=== PATIENT | female | born 1940 | race Caucasian/White ===

== ENCOUNTER 2016-08-02 16:52 | Emergency (ER) | payer MEDICARE, BC ==
[2016-08-02] MEDS ORDERED: NITROGLYCERIN 0.4 MG TAB SL PRN (17:12)
[2016-08-02] MEDS ORDERED: SODIUM CHLORIDE 0.9% FLUSH 10 ML SOL IV PRN (17:12)
[2016-08-02] MEDS ORDERED: ALPRAZOLAM 0.25 MG TAB PO ONE (17:19)
[2016-08-02 17:21] VITALS: TEMP 98.2
[2016-08-02 17:23] LABS: BASOPHILS % (AUTO) 1 % (0-3); EOSINOPHILS % (AUTO) 3 % (0-9); HEMATOCRIT 44 % (35-47); MEAN CORPUSCULAR HGB CONC 36.4 gm/dl (32.0-36.0); MEAN CORPUSCULAR VOLUME 91 fL (81-99); MONOCYTES % (AUTO) 7.3 % (0-12); NEUTROPHILS % (AUTO) 66.2 % (37-80)
[2016-08-02] MEDS ORDERED: ALPRAZOLAM 0.25 MG TAB ONE (17:24)
[2016-08-02 17:44] LABS: CALCIUM 8.9 mg/dl (8.5-10.1); GLOM FILT RATE 63 mL/min (>60); POTASSIUM 4.3 mMol/L (3.5-5.1); SODIUM 139 mMol/L (136-145)
[2016-08-02 18:23] VITALS: BP 129/77; PULSE 86; RESP 25; O2SAT 96
== END 2016-08-02 19:05 | disposition home or self-care (01) | DRG 313 ==
LOC: ED 16:52
DX: R07.9 Chest pain, unspecified (principal); B37.0 Candidal stomatitis; F41.9 Anxiety disorder, unspecified
CPT/HCPCS: 36415; 71010; 80048; 82550; 84484; 85025; 85610; 85730; 93005; 99284

== ENCOUNTER 2017-03-07 07:35 | Day surgery (SDC) | payer MEDICARE, BC ==
[~2017-03-07 07:35] MED LIST: LIDOCAINE HCL 1% MPF SOL ONE; PROPOFOL 500 MG/50 ML EMU IV ONE
[2017-03-07 10:32] VITALS: TEMP 97.4
[2017-03-07 10:45] VITALS: RESP 20
[2017-03-07 11:01] VITALS: BP 119/66; PULSE 85; O2SAT 92
== END 2017-03-07 11:08 | disposition home or self-care (01) | DRG 392 ==
LOC: SURG 07:35
PROVIDERS: ATTEND Internal Medicine Gastroenterology
DX: R10.9 Unspecified abdominal pain (principal); R15.9 Full incontinence of feces; E11.9 Type 2 diabetes mellitus without complications; K59.00 Constipation, unspecified; R93.3 Abnormal findings on diagnostic imaging of other parts of digestive tract; R63.4 Abnormal weight loss; K62.3 Rectal prolapse; D12.2 Benign neoplasm of ascending colon; D12.3 Benign neoplasm of transverse colon; K63.5 Polyp of colon; K57.30 Diverticulosis of large intestine without perforation or abscess without bleeding; K64.8 Other hemorrhoids
CPT/HCPCS: J2001; J2704

== ENCOUNTER 2017-03-15 08:45 | Day surgery (SDC) | payer MEDICARE, BC ==
[2017-03-15] MEDS ORDERED: PROPOFOL 500 MG/50 ML EMU IV ONE (10:01)
[2017-03-15] MEDS ORDERED: LIDOCAINE HCL 1% MPF SOL ONE (10:01)
[2017-03-15 11:11] VITALS: RESP 20; TEMP 97.9
[2017-03-15 11:13] VITALS: BP 109/58; PULSE 89; O2SAT 98
== END 2017-03-15 11:25 | disposition home or self-care (01) | DRG 948 ==
LOC: SURG 08:45
PROVIDERS: ATTEND Surgery
DX: R68.81 Early satiety (principal)
CPT/HCPCS: J2001; J2704